=== PATIENT | male | born 1980 | race Two or more races ===

== ENCOUNTER 2021-07-25 17:34 | Emergency (ER) | payer SELFPAY ==
[~2021-07-25] VITALS: Ht 185.4 cm; Wt 99.8 kg
[2021-07-25 17:34] VITALS: BP 122/88
[2021-07-25 18:51] LABS: Basophils # (auto) 0 10 ^3/uL (0-0.2); Basophils % (auto) 0.1 % (0.0-2.0); Eosinophils # (auto) 0 10 ^3/uL (0-0.8); Hematocrit 42.3 % (41.0-53.0); Hemoglobin 14.6 g/dL (13.5-17.5); Lymphocytes # (auto) 0.7 10 ^3/uL (0.4-5.4); Lymphocytes % (auto) 7.9 % (10.0-50.0); Mean Corpuscular Hemoglobin 29.7 pg (28.0-32.0); Mean Corpuscular Hgb Conc. 34.5 g/dL (32.0-36.0); Mean Corpuscular Volume 86.3 fL (80.0-100.0); Monocytes # (auto) 0.1 10 ^3/uL (0-1.3); Monocytes % (auto) 1.2 % (0.0-12.0); Neutrophils # (auto) 8.5 10 ^3/uL (1.6-8.6); Neutrophils % (auto) 90.8 % (37.0-80.0); Nucleated Red Blood Cells % 0.1 %; Red Cell Distribution Width 13.8 % (11.8-14.3); White Blood Cell 9.4 10^3/uL (4.4-10.8)
[2021-07-25 19:09] LABS: Albumin 3.8 g/dL (3.4-5.0); BUN/Creatinine Ratio 14.3; Calcium 8.6 mg/dL (8.5-10.1); Potassium 4.2 mmol/L (3.5-5.1)
[2021-07-25 19:12] LABS: Bilirubin, Total 0.5 mg/dL (0.2-1.0); Total Protein 7.5 g/dL (6.4-8.2)
[2021-07-25] MEDS ORDERED: ONDANSETRON ODT 4 MG TAB PO ONE (19:15)
[2021-07-25] MEDS ORDERED: FAMOTIDINE 20 MG TAB PO ONE (19:15)
[2021-07-25] MEDS ORDERED: ALUM & MAG HYDROX-SIMETH LIQ(MAALOX) 30 ML PO ONE (19:15)
[2021-07-25] MEDS ORDERED: LIDOCAINE VISCOUS 2% 15ML UD PO ONE (19:15)
[2021-07-25] MEDS ORDERED: ONDA-144 PO (19:52)
== END 2021-07-25 20:03 | disposition home or self-care (01) ==
LOC: ER 17:34 → EDBD 17:34 → ER 20:03
DX: M94.0 Chondrocostal junction syndrome [Tietze] (principal); B34.9 Viral infection, unspecified
CPT/HCPCS: 36415; 80053; 84484; 85025; 93005